=== PATIENT | female | born 1965 | race African-American/Black ===

== ENCOUNTER 2019-09-22 18:52 | Emergency (ER) | payer BC, OTHER ==
[~2019-09-22] VITALS: Ht 175.3 cm; Wt 86.2 kg
[~2019-09-22 18:52] MED LIST: CALCIUM 500 +1 EAC5 PO; IBUPROFEN 400400 M2; TUSSIONEX PENN473 ML PO; VENTOLIN HFA 1818 GM INH; VITAMIN D1000 UNI1; ZPAK PO
[2019-09-23] MEDS ORDERED: NORCO 5-325 TA1 EAC1 PO (00:14)
[2019-09-23] MEDS ORDERED: ALEVE220 MG PO (00:14)
[2019-09-23] MEDS ORDERED: SENNA-DOCUSATE1 EAC1 PO (00:14)
[2019-09-23 01:47] VITALS: BP 122/67
== END 2019-09-23 01:47 | disposition home or self-care (01) ==
LOC: ER 18:52
DX: S43.084A Other dislocation of right shoulder joint, initial encounter (principal); Z90.710 Acquired absence of both cervix and uterus; Z91.012 Allergy to eggs; Z88.0 Allergy status to penicillin; W01.0XXA Fall on same level from slipping, tripping and stumbling without subsequent striking against object, initial encounter; Y93.89 Activity, other specified; Y92.89 Other specified places as the place of occurrence of the external cause; Y99.8 Other external cause status

== ENCOUNTER 2019-09-27 21:52 | Emergency (ER) | payer BC, OTHER ==
[~2019-09-27] VITALS: Ht 172.7 cm; Wt 86.2 kg
[~2019-09-27 21:52] MED LIST changes: +ALEVE220 MG PO; +NORCO 5-325 TA1 EAC1 PO; +SENNA-DOCUSATE1 EAC1 PO
[2019-09-27] MEDS ORDERED: NOHOMEMEDICATIONS (22:26)
[2019-09-28] MEDS ORDERED: NORCO 5-325 TA1 EAC1 PO (02:55)
[2019-09-28 03:25] VITALS: BP 127/77
== END 2019-09-28 03:28 | disposition home or self-care (01) ==
LOC: ER 21:52
DX: S43.084A Other dislocation of right shoulder joint, initial encounter (principal); Z88.0 Allergy status to penicillin; Z91.012 Allergy to eggs; W00.0XXA Fall on same level due to ice and snow, initial encounter; Y92.89 Other specified places as the place of occurrence of the external cause; Y93.89 Activity, other specified; Y99.8 Other external cause status